=== PATIENT | male | born 1965 | race Caucasian/White ===

== ENCOUNTER 2016-12-13 16:55 | Emergency (ER) | payer OTHER ==
[2016-12-13 17:21] VITALS: TEMP 97; O2SAT 99
--- NOTE | 2016-12-13 17:41 | ED.PDOC ---
History of Present Illness - General Chief Complaint: Skin/Abrasion/Tear Stated Complaint: skin abrasions and discomfort x 1 year Time Seen by Provider: 12/13/16 17:36 Source: patient, RN notes reviewed, Vital Signs reviewed, family Exam Limitations: no limitations - History of Present Illness Initial Comments: Patient reports that about a year ago he got lye dueñas on his shins. Since then it improves then starts itching again and he starts scratching and it worsens again. Over the past few days it has become more red and swollen. No fever or chills. Otherwise he feels well. Timing/Duration: changing over time Severity: moderate Location: extremities Improving Factors: nothing Worsening Factors: nothing Associated Symptoms: change in skin texture, itching, rash Allergies/Adverse Reactions: Allergies NO KNOWN ALLERGY Allergy (Verified 12/13/16 17:09) Home Medications: Ambulatory Orders Fluocinonide 0.05 % Cream [Lidex Cream] 1 applic TOP BID #180 gm 12/13/16 Sulfa/Trimeth 800/160 (Ds) Tab [Bactrim DS Tab] 1 ea PO BID #14 tab 12/13/16 Review of Systems - Review of Systems Constitutional: States: no symptoms reported Respiratory: States: no symptoms reported Cardiology: States: no symptoms reported Musculoskeletal: States: no symptoms reported Skin: States: see HPI Neurological: States: no symptoms reported Past Medical History (General) - Patient Medical History Hx Seizures: No Hx Stroke: No Hx Dementia: No Hx Asthma: No Hx of COPD: No Hx Cardiac Disorders: No Hx Congestive Heart Failure: No Hx Pacemaker: No Hx Hypertension: No Hx Thyroid Disease: No Hx Diabetes: No Hx Gastroesophageal Reflux: No Hx Renal Disease: No Hx Cancer: No Hx of HIV: No Hx Hepatitis C: No Hx MRSA: No - Vaccination History Hx Tetanus, Diphtheria Vaccination: Yes Hx Influenza Vaccination: No Hx Pneumococcal Vaccination: No Immunizations Up to Date: No - Social History Hx Tobacco Use: Yes Hx Chewing Tobacco Use: No Hx Alcohol Use: No Hx Substance Use: No Hx Substance Use Treatment: No Hx Depression: No Feels Threatened In Home Enviroment: No Feels Threatened In a Relationship: No Hx Physical Abuse: No Hx Emotional Abuse: No Hx Suspected Abuse: No - Female History Patient is a Female of Child Bearing Age (10 -59 yrs old): No Patient : No Family Medical History - Family History Mother Family History: No Known Living Status: Still Living Physical Exam - Physical Exam General Appearance: Alert, Comfortable, No apparent distress, Well Developed, Well Groomed, Well Hydrated, Well Nourished Cardiovascular/Chest: normal peripheral pulses, regular rate, rhythm, no edema, no gallop, no murmur Respiratory: lungs clear, normal breath sounds, no respiratory distress Extremity: normal range of motion, inflammation, swelling Neurologic: alert, normal mood/affect, oriented x 3 Skin Exam: warm/dry, normal color Skin Problem Location: lower extremities Skin Character: erythema, rash, swelling, tenderness, warm - Bilateral anterior shins, R worse than L. Comments: Vital Signs - 24 hr 12/13/16 17:10 Temperature 97 F L Pulse Rate [ 89 Left Radial] Respiratory 18 Rate Blood Pressure 159/89 [Left Arm] O2 Sat by Pulse 99 Oximetry Departure - Departure Clinical Impression: Cellulitis of left lower extremity, Cellulitis of right lower extremity Contact dermatitis Qualifiers: Contact dermatitis type: irritant Contact dermatitis cause: other chemical product Qualified Code(s): L24.5 - Irritant contact dermatitis due to other chemical products Time of Disposition: 17:47 Disposition: Discharge to Home or Self Care Condition: Good Departure Forms: ED Discharge - Pt. Copy, Patient Portal Self Enrollment Instructions: DI for Cellulitis -- Adult, DI for Contact Dermatitis Diet: resume usual diet Activity: increase activity as tolerated Prescriptions: Fluocinonide 0.05 % Cream [Lidex Cream] 1 applic TOP BID #180 gm Sulfa/Trimeth 800/160 (Ds) Tab [Bactrim DS Tab] 1 ea PO BID #14 tab Home Medications: Ambulatory Orders Fluocinonide 0.05 % Cream [Lidex Cream] 1 applic TOP BID #180 gm 12/13/16 Sulfa/Trimeth 800/160 (Ds) Tab [Bactrim DS Tab] 1 ea PO BID #14 tab 12/13/16 Additional Instructions: Follow up with PCP in 3-5 days for recheck.
[2016-12-13] MEDS: SULFA/TRIMETH 800/160 (DS) TAB 1 EA TAB PO ONE (17:52)
[2016-12-13] MEDS: methylPREDNISolone SODIUM SUC 125 MG/2 ML VIAL IM ONE (17:52)
[2016-12-13 18:13] VITALS: BP 135/80
== END 2016-12-13 18:13 | disposition home or self-care (01) ==
LOC: ER 16:55
DX: L24.5 Irritant contact dermatitis due to other chemical products (principal); L03.116 Cellulitis of left lower limb; L03.115 Cellulitis of right lower limb; Z87.891 Personal history of nicotine dependence

== ENCOUNTER 2017-12-15 16:35 | Emergency (ER) | payer MEDICAID, OTHER ==
[2017-12-15 16:49] VITALS: TEMP 99.1
[2017-12-15] MEDS ORDERED: CEPHALEXIN MONOHYDRATE 250 MG CAP PO ONE (16:56)
--- NOTE | 2017-12-15 16:59 | ED.PDOC ---
History of Present Illness - General Chief Complaint: Skin/Abrasion/Tear Stated Complaint: Skin rash Time Seen by Provider: 12/15/17 16:56 Source: patient Exam Limitations: no limitations - History of Present Illness Initial Comments: patient comes in today with 2 week history of severe itching and rash on his upper extremities, back, lower extremities. Patient states he has no new lotions or detergents. He hasn't working with concrete and last time this happened also cause some itching problems. Patient states he was never this severe that when he did not have this bad of a rash. 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 He states now they' re red, swollen, and more painful. In the past they have given him fluticasone to place over the area but they state this has not been helping this time. He has no fever, chills, cough or cold symptoms. He has no past medical history. Patient states they came into the emergency room today do not have a primary care doctor and do not have health insurance. Patient does smoke 1-2 packs every couple of days, drinks about 4-5 beers a night, but does not take illicit drugs. Timing/Duration: week - 2-3 Severity: severe Location: generalized Improving Factors: nothing Worsening Factors: nothing Associated Symptoms: denies symptoms Allergies/Adverse Reactions: Allergies NO KNOWN ALLERGY Allergy (Verified 12/15/17 16:49) Home Medications: Ambulatory Orders Cephalexin Monohydrate [Keflex] 500 mg PO TID 10 Days #30 cap 12/15/17 Hydrocortisone (Topical) [Ala-Renny] 2.5 % EX TID PRN #60 amb 12/15/17 Permethrin 5% [Elimite] 1 applic TOP ONCE #60 tube 12/15/17 Review of Systems - Review of Systems Constitutional: States: no symptoms reported. Denies: chills, fever, malaise, weakness EENTM: Denies: no symptoms reported, eye pain, ear pain, nose pain, nose congestion, throat pain Respiratory: Denies: cough, short of breath, wheezing Cardiology: Denies: chest pain, edema, palpitations Gastrointestinal/Abdominal: Denies: abdominal pain, constipation, diarrhea, vomiting Genitourinary: Denies: dysuria, frequency, hematuria Musculoskeletal: States: no symptoms reported Skin: States: see HPI Past Medical History (General) - Patient Medical History Hx Seizures: No Hx Stroke: No Hx Dementia: No Hx Asthma: No Hx of COPD: No Hx Cardiac Disorders: No Hx Congestive Heart Failure: No Hx Pacemaker: No Hx Hypertension: No Hx Thyroid Disease: No Hx Diabetes: No Hx Gastroesophageal Reflux: No Hx Renal Disease: No Hx Cancer: No Hx of HIV: No Hx Hepatitis C: No Hx MRSA: No Surgical History: other - Vaccination History Hx Tetanus, Diphtheria Vaccination: Yes Hx Influenza Vaccination: No Hx Pneumococcal Vaccination: No - Social History Hx Tobacco Use: Yes Hx Chewing Tobacco Use: No Hx Alcohol Use: No Hx Substance Use: No Hx Substance Use Treatment: No Hx Depression: No Hx Physical Abuse: No Hx Emotional Abuse: No Hx Suspected Abuse: No - Female History Patient : No Family Medical History - Family History Mother Family History: No Known Living Status: Still Living Physical Exam - Physical Exam General Appearance: No apparent distress Eyes, Ears, Nose, Throat Exam: PERRL/EOMI Neck: non-tender Cardiovascular/Chest: regular rate, rhythm, no edema, no gallop, no murmur Respiratory: chest non-tender, lungs clear, normal breath sounds Gastrointestinal/Abdominal: normal bowel sounds, soft Skin Exam: other - patient has papular skin colored rash with excoriations and burrows on his arms and back. Shins have 10 x 6 cm erythematous raw area that is non blanching with no induration but some yellow scabbing. No calor or fluctulance. 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 Copy, Patient Portal Self Enrollment Diet: regular diet Activity: may shower, no tub bath, other - no hot tub Home Medications: Ambulatory Orders Cephalexin Monohydrate [Keflex] 500 mg PO TID 10 Days #30 cap 12/15/17 Hydrocortisone (Topical) [Ala-Renny] 2.5 % EX TID PRN #60 amb 12/15/17 Permethrin 5% [Elimite] 1 applic TOP ONCE #60 tube 12/15/17 Additional Instructions: patient needs to establish a primary care doctor to follow up on his chronic skin infection of his lower extremities. Please give patient information for sliding scale clinic in nearby areas. Patient is to apply Elimite to all areas with the exception of raw ulcers on his legs and mucosa and eyes for 8 hours and then wash off. Afterwards patient may use hydrocortisone cream for itching. He should finish his Keflex for the topical infection on his lower extremitiesfrom his chronic wound.
[2017-12-15 17:21] VITALS: BP 163/92; O2SAT 94
== END 2017-12-15 17:13 | disposition home or self-care (01) ==
LOC: ER 16:35
DX: L03.116 Cellulitis of left lower limb (principal); L03.115 Cellulitis of right lower limb; B86 Scabies; F17.200 Nicotine dependence, unspecified, uncomplicated

== ENCOUNTER 2018-03-07 00:25 | Emergency (ER) | payer MEDICAID ==
[2018-03-07 00:52] VITALS: TEMP 98.7
[2018-03-07] MEDS ORDERED: SODIUM CHLORIDE 0.9% 1000ML 1,000 ML IVS PRN (01:13)
--- NOTE | 2018-03-07 01:16 | ED.PDOC ---
History of Present Illness - General Chief Complaint: Abdominal Pain Stated Complaint: RUQ pain, bloating x's 4 days Time Seen by Provider: 03/07/18 00:36 Source: patient Exam Limitations: no limitations - History of Present Illness Initial Comments: Patient presents with RUQ pain for four days. It is constant and feels like "a bruise that someone is pressing on". Worse after eating. He had a previous episode 10 days ago that resolved on its own. Has had hernia repairs but no other abdominal surgeries. No associated symptoms. No N/V/D. Last BM was two nights ago and was "big". Denies hematochezia. He has had a decreased appetite because he is afraid his stomach will hurt worse after he eats. No other complaints. Timing/Duration: other - 4 days Severity: moderate Improving Factors: nothing Worsening Factors: eating Associated Symptoms: denies symptoms Allergies/Adverse Reactions: Allergies NO KNOWN ALLERGY Allergy (Verified 03/07/18 00:52) Home Medications: Ambulatory Orders Cephalexin Monohydrate [Keflex] 500 mg PO TID 10 Days #30 cap 12/15/17 Hydrocortisone (Topical) [Ala-Renny] 2.5 % EX TID PRN #60 amb 12/15/17 Permethrin 5% [Elimite] 1 applic TOP ONCE #60 tube 12/15/17 Review of Systems - Review of Systems Constitutional: States: no symptoms reported EENTM: States: no symptoms reported Respiratory: States: no symptoms reported Cardiology: States: no symptoms reported Gastrointestinal/Abdominal: States: see HPI Genitourinary: States: no symptoms reported Musculoskeletal: States: no symptoms reported Skin: States: no symptoms reported Neurological: States: no symptoms reported Endocrine: States: no symptoms reported Hematologic/Lymphatic: States: no symptoms reported Past Medical History (General) - Patient Medical History Hx Seizures: No Hx Stroke: No Hx Dementia: No Hx Asthma: No Hx of COPD: No Hx Cardiac Disorders: No Hx Congestive Heart Failure: No Hx Pacemaker: No Hx Hypertension: No Hx Thyroid Disease: No Hx Diabetes: No Hx Gastroesophageal Reflux: No Hx Renal Disease: No Hx Cancer: No Hx of HIV: No Hx Hepatitis C: No Hx MRSA: No - Vaccination History Hx Tetanus, Diphtheria Vaccination: Yes Hx Influenza Vaccination: No Hx Pneumococcal Vaccination: No - Social History Hx Tobacco Use: Yes Hx Chewing Tobacco Use: No Hx Alcohol Use: No Hx Substance Use: No Hx Substance Use Treatment: No Hx Depression: No Hx Physical Abuse: No Hx Emotional Abuse: No Hx Suspected Abuse: No - Female History Patient : No Family Medical History - Family History Mother Family History: No Known Living Status: Still Living Physical Exam - Physical Exam General Appearance: Alert Eye Exam: bilateral normal Ears, Nose, Throat: normal ENT inspection Neck: non-tender, full range of motion, supple Respiratory: chest non-tender, lungs clear, normal breath sounds Cardiovascular/Chest: normal peripheral pulses, regular rate, rhythm, no edema Gastrointestinal/Abdominal: normal bowel sounds, soft, tenderness - over RUQ Back Exam: no CVA tenderness, no vertebral tenderness Extremity: normal range of motion, non-tender, normal inspection Neurologic: no motor/sensory deficits, alert, normal mood/affect, oriented x 3 Skin Exam: normal color Lymphatic: no adenopathy Progress - Progress Progress: 03/07/18 02:[address] abdomen/pelvis showed no acute disease and no obvious reason for the symptoms. Patient was given magnesium citrate and discharged with E.R. warnings. Questions were elicited and answered. The patient voiced understanding and agreement with the plan. Laboratory Tests 03/07/18 03/07/18 03/07/18 00:55 00:55 01:30 WBC 11.3 H RBC 5.23 Hgb 17.0 Hct 50.2 MCV 96.0 H MCH 32.4 H MCHC 33.8 RDW 14.2 Plt Count 246 MPV 7.9 Absolute Neuts (auto) 8.30 H Absolute Lymphs (auto) 1.90 Absolute Monos (auto) 0.80 Absolute Eos (auto) 0.20 Absolute Basos (auto) 0.10 Neutrophils % 73.5 Lymphocytes % 16.5 L Monocytes % 7.0 Eosinophils % 2.2 Basophils % 0.8 Sodium 139 Potassium 4.5 Chloride 105 Carbon Dioxide 26 Anion Gap 12.5 BUN 11 Creatinine 0.57 L BUN/Creatinine Ratio 19.3 Random Glucose 110 H Serum Osmolality 277.6 Calcium 9.3 Total Bilirubin 0.3 AST 22 ALT 23 Alkaline Phosphatase 58 Serum Total Protein 7.7 Albumin 4.3 Globulin 3.4 Albumin/Globulin Ratio 1.3 Lipase 19 L Urine Color Yellow Urine Appearance Clear Urine pH 7.0 Ur Specific Curtis 1.025 Urine Protein Negative Urine Glucose (UA) Negative Urine Ketones Negative Urine Blood Negative Urine Nitrite Negative Urine Bilirubin Negative Urine Urobilinogen 0.2 Ur Leukocyte Esterase Negative Urine RBC 1-3 Urine WBC 0-1 Ur Epithelial Cells 1-3 Urine Bacteria Rare Urine Mucus Small Departure - Departure Clinical Impression: Constipation, Tobacco abuse counseling Disposition: Discharge to Home or Self Care Condition: Good Departure Forms: ED Discharge - Pt. Copy, Patient Portal Self Enrollment Instructions: DI for Abdominal Pain-Adult Diet: resume usual diet Activity: increase activity as tolerated Home Medications: Ambulatory Orders Cephalexin Monohydrate [Keflex] 500 mg PO TID 10 Days #30 cap 12/15/17 Hydrocortisone (Topical) [Ala-Renny] 2.5 % EX TID PRN #60 amb 12/15/17 Permethrin 5% [Elimite] 1 applic TOP ONCE #60 tube 12/15/17 Additional Instructions: Increase oral fluids to prevent from becoming dehydrated as the laxative is working. Follow up with a primary care doctor for further evaluation if your symptoms do not resolve. You have been provided with literature for smoking cessation. Please review it and consider stopping smoking.
--- NOTE | 2018-03-07 02:47 | CT ---
CT abdomen and pelvis with and without contrast on 03/07/2018 CLINICAL INDICATION: Generalized abdominal pain TECHNIQUE: Multiple axial images are obtained throughout the abdomen and pelvis both prior to and following the administration of IV contrast. This exam was performed according to our departmental dose-optimization program, which includes automated exposure control, adjustment of the mA and/or kV according to patient size and/or use of iterative reconstruction technique. Total DLP is 2375.83 mGy*cm. COMPARISON: None FINDINGS: Abdomen: The lung bases are clear. There are no renal or ureteral stones and no hydronephrosis. The solid abdominal organs are unremarkable. Vascular calcifications are noted. There is no abdominal adenopathy. There is no free fluid or free air within the abdomen. The abdominal portion of the GI tract is unremarkable. Pelvis: There is no free fluid in the pelvis. There is no pelvic adenopathy. There is diverticulosis. The pelvic portion of the GI tract including the appendix is otherwise unremarkable. Degenerative changes are noted in the spine. IMPRESSION: 1. Mild diverticulosis. 2. No acute abnormality. Electronically signed by: Jerzy Lange 03/07/2018 2:45 AM CDT
[2018-03-07] MEDS ORDERED: MAGNESIUM CITRATE 300 ML BTTL PO ONE (02:53)
[2018-03-07 03:08] VITALS: BP 150/93; O2SAT 99
== END 2018-03-07 03:09 | disposition home or self-care (01) ==
LOC: ER 00:25
DX: K59.00 Constipation, unspecified (principal); F17.200 Nicotine dependence, unspecified, uncomplicated; Z87.891 Personal history of nicotine dependence